=== PATIENT | male | born 2000 | race Caucasian/White ===

== ENCOUNTER 2024-01-25 09:52 | Emergency (ER) | payer SELFPAY ==
[2024-01-25 09:56] VITALS: BP 137/77; PULSE 66; RESP 16; TEMP 36.4; O2SAT 100
--- NOTE | 2024-01-25 12:00 | ED.HA ---
HPI - Headache General Chief Complaint: Headache Stated Complaint: headache Time Seen by Provider: 01/25/24 11:40 Source: patient Mode of arrival: ambulatory Limitations: no limitations History of Present Illness HPI Narrative: Patient is a 23 y/o male who presents to the ED with c/o L upper dental pain. Patient reports having a known fractured tooth in his left upper molar, #16. He is planning to see a dentist in [place] soon. States over the last 1 week, he has had increased pain surrounding this tooth, worse over the last 1-2 days. States pain radiates up to his left sided head. Has been taking Ibuprofen for the pain w/o relief. Denies difficulty breathing or swallowing, fevers, drainage from the tooth, N/V. Related Data Allergies Allergy/AdvReac Type Severity Reaction Status Date / Time No Known Allergies Allergy Verified 01/25/24 11:40 Review of Systems Review of Systems: CONSTITUTIONAL: Denies fever, chills, or sweats. ENT: See HPI. RESPIRATORY: Denies cough or dyspnea. GASTROINTESTINAL: Denies nausea, vomiting NEUROLOGIC: See HPI. All systems reviewed & are unremarkable except as noted in HPI and below Exam Narrative: GENERAL: Well appearing, well-nourished, non-toxic, in no acute distress. HEAD: Normocephalic, atraumatic. ENT: MMs moist. Diffuse dental decay, scattered dental caries. Fractured tooth number #16 with tenderness to surrounding gum line, no focal abscess or induration. No drainage. No trismus or stridor. No tonsillar hypertrophy or exudate. RESPIRATORY: Airway patent, respirations nonlabored CARDIOVASCULAR: Regular rate and rhythm MUSCULOSKELETAL: Moves all extremities. No gross deformities. SKIN: Warm, dry, normal color. NEURO: A&O X3. Speech clear. PSYCHIATRIC: Appropriate mood and affect. Normal interaction. HENMT: Teeth image: 1. fractured tooth, tenderness surrounding Course Vital Signs Vital signs: Vital Signs Temperature 97.6 F 01/25/24 09:56 Pulse Rate 66 01/25/24 09:56 Respiratory Rate 16 01/25/24 09:56 Blood Pressure 137/77 01/25/24 09:56 Pulse Oximetry 100 01/25/24 09:56 Temperature 97.6 F 01/25/24 09:56 Pulse Rate 60 01/25/24 12:55 Respiratory Rate 16 01/25/24 12:55 Blood Pressure 134/97 H 01/25/24 12:55 Pulse Oximetry 99 01/25/24 12:55 MDM - Headache MDM Narrative Medical decision making narrative: Patient's pain is consistent with dental caries/dental fracture/dental pain. There are no focal signs of space-occupying abscess. The patient is controlling secretions well without signs of airway compromise. Patient is felt reasonable for outpatient follow-up with dental evaluation. Will start patient on Augmentin, prescribe a few pain pills. Recommended that patient contact dentist as soon as possible, given return precautions. Discharged in stable condition. Medical Records Attestation: I reviewed the patient's medical records. Discharge Plan Discharge Clinical Impression: Toothache Fracture of tooth Qualifiers: Encounter type: initial encounter Fracture type: closed Qualified Code(s): S02.5XXA - Fracture of tooth (traumatic), initial encounter for closed fracture Patient Disposition: Home, Self-Care Condition: Stable Instructions: Antibiotic Form, Toothache (ED), Mouth Care (ED) Additional Instructions: Take antibiotics as prescribed. Continue Tylenol and ibuprofen as needed for pain. [place] as needed for more severe pain. Stay well hydrated. Follow-up with dentist as soon as possible for further evaluation. Return to the ED if you experience worsening or severe pain, unable to keep down food or drink, difficulty breathing or swallowing, persistent fevers, or any other symptoms of concern for him Prescriptions: New hydrocodone-acetaminophen 5-325 mg tablet 1 tablet PO Q6H PRN (Reason: pain) Qty: 9 0RF amoxicillin-pot clavulanate 875-125 mg tablet 1 tablet PO Q12H 7 Days Qty: 14 0RF Fo
[2024-01-25] MEDS: AMOXICILLIN/CLAVULANATE K 875-125 MG TAB 1 TABLET PO (12:12)
[2024-01-25] MEDS: HYDROcodone/acetaminophen (*CRX) 5-325 MG TABLET 1 TAB PO (12:12)
[2024-01-25 12:55] VITALS: BP 134/97; PULSE 60; RESP 16; O2SAT 99
== END 2024-01-25 12:56 | disposition home or self-care (01) ==
LOC: ANHED 12:48
PROVIDERS: Emergency Provider Physician Assistant
DX: K08.89 Other specified disorders of teeth and supporting structures (principal); K03.81 Cracked tooth
CPT/HCPCS: 99283; A9270